=== PATIENT | female | born 1970 | race African-American/Black ===

== ENCOUNTER 2018-06-13 14:08 | Emergency (ER) | payer OTHER ==
[~2018-06-13] VITALS: Ht 165.1 cm; Wt 95.3 kg
--- NOTE | ~2018-06-13 | EKG ---
[place] [address] [employer] [facility] [place] [address] ELECTROCARDIOGRAM REPORT Name: TARIKOLLIE Aby Room #: 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1970 Requested By: Srinivas Najera Order Number: [id number] MD: Deric Ojeda Measurements Intervals [place] Rate: 87 P: -88 [place]: 102 QRS: -28 QRSD: 105 T: 44 QT: 389 QTc: 468 Interpretive Statements Ectopic atrial rhythm Borderline left axis deviation RSR' in V1 or V2, probably normal variant Compared to ECG 02/28/2015 12:09:12 Ectopic atrial rhythm now present Electronically Signed On 06-14-2018 8:49:34 [employer]IST by Deric Ojeda [email or web address] <ELECTRONICALLY SIGNED> By: Deric Ojeda MD, [facility] 06/14/18 0849 1500 1500 Deric Ojeda MD, [facility] /EPI
[~2018-06-13 14:08] MED LIST: APAP500 PO; BACTRIM DS TAB1 EACH PO; COLACE100 MG PO; HYCET 7.5 MG-3473 ML PO; HYDROCODONE-AP1 EAC6 PO; IBUPROFEN 800800 MG PO; LEVAQUIN 500 M500 M2 PO; MIRALAX17 GM PO; MUCINEX TA600 MG/TA2 PO; NORCO 5-325 TA1 EACH PO; NORVASC10 MG PO; SENNA PO; TESSALON PERLE100 MG PO; VENTOLIN HFA 1818 GM INH; ZANTAC 150MG T150 M1 PO; ZANTAC 150MG T150 MG PO; ZOFRAN ODT4 MG PO
[2018-06-13] MEDS ORDERED: RANITIDINE 150150 M1 PO (14:18)
[2018-06-13 15:22] LABS: BASOPHILS 1.4 % (0.0-2.0); EOSINOPHILS 0.5 % (0.0-3.0); HEMATOCRIT 41.5 % (37.0-47.0); HEMOGLOBIN 14.1 gm/dL (12.0-15.0); LYMPHOCYTES 45.1 % (24.0-44.0); MCH 33.1 pg (26.0-34.0); MCV 97.4 fL (80.0-100.0); MONOCYTES 9.7 % (1.0-8.0); PLATELET COUNT 195 thou/uL (150-400); POLYS 43.3 % (36.0-66.0); RBC 4.26 mil/uL (4.20-5.00); RDW 14.2 % (10.5-14.5); WBC 6.9 thou/uL (4.0-11.0)
[2018-06-13 15:27] LABS: ANION GAP 8 mmol/L (7-16); BUN 8 mg/dL (7-18); CALCIUM 9.5 mg/dL (8.5-10.1); CHLORIDE 106 mmol/L (98-107); CO2 29 mmol/L (21-32); CREATININE 0.9 mg/dL (0.6-1.0); GLUCOSE 107 mg/dL (74-106); POTASSIUM 3.9 mmol/L (3.5-5.1); SODIUM 143 mmol/L (136-145)
[2018-06-13 15:37] LABS: TROPONIN-I <0.06 ng/mL (<0.06)
[2018-06-13] MEDS ORDERED: DOXYCYCLINE 10100 MG PO (16:39)
[2018-06-13] MEDS ORDERED: TESSALON PERLE100 MG PO (16:39)
[2018-06-13 17:14] VITALS: BP 155/94
== END 2018-06-13 17:15 | disposition home or self-care (01) ==
LOC: ER 14:08
PROVIDERS: Physician Assistant
DX: J18.9 Pneumonia, unspecified organism (principal); R42 Dizziness and giddiness; G89.29 Other chronic pain; R10.2 Pelvic and perineal pain; K21.9 Gastro-esophageal reflux disease without esophagitis; Z90.49 Acquired absence of other specified parts of digestive tract; Z98.891 History of uterine scar from previous surgery; Z90.710 Acquired absence of both cervix and uterus; Z90.721 Acquired absence of ovaries, unilateral; Z86.718 Personal history of other venous thrombosis and embolism

== ENCOUNTER 2020-01-05 18:43 | Emergency (ER) | payer OTHER ==
[~2020-01-05] VITALS: Ht 165.1 cm; Wt 90.7 kg
[~2020-01-05 18:43] MED LIST changes: +DOXYCYCLINE 10100 MG PO; +RANITIDINE 150150 M1 PO
[2020-01-05 19:50] LABS: URINE BILIRUBIN NEGATIVE (Negative); URINE BLOOD NEGATIVE (Negative); URINE CLARITY CLEAR; URINE COLOR YELLOW; URINE GLUCOSE-RANDOM* NEGATIVE (Negative); URINE KETONES TRACE (Negative); URINE LEUKOCYTES-REFLEX NEGATIVE (Negative); URINE NITRITE-REFLEX NEGATIVE (Negative); URINE PROTEIN (DIPSTICK) TRACE (Negative)
[2020-01-05 20:11] LABS: ABSOLUTE NEUTROPHILS 3.2 thou/uL (1.4-8.2); EOSINOPHILS 3.8 % (0.0-3.0); HEMATOCRIT 34.4 % (37.0-47.0); HEMOGLOBIN 11.8 gm/dL (12.0-15.0); LYMPHOCYTES 45.3 % (24.0-44.0); MCHC 34.2 g/dL (28.0-37.0); MCV 99.4 fL (80.0-100.0); MONOCYTES 7.9 % (1.0-8.0); PLATELET COUNT 212 thou/uL (150-400); RBC 3.46 mil/uL (4.20-5.00); RDW 15.5 % (10.5-14.5); WBC 7.6 thou/uL (4.0-11.0)
[2020-01-05 20:23] LABS: ANION GAP 8 mmol/L (7-16); BUN 11 mg/dL (7-18); CALCIUM 8.4 mg/dL (8.5-10.1); CHLORIDE 106 mmol/L (98-107); CO2 25 mmol/L (21-32); CREATININE 0.8 mg/dL (0.6-1.0); GLUCOSE 97 mg/dL (74-106); POTASSIUM 3.5 mmol/L (3.5-5.1); SODIUM 139 mmol/L (136-145)
[2020-01-05 20:33] LABS: ALBUMIN 3.4 g/dL (3.4-5.0); LIPASE 54 U/L (73-393); SGOT 15 U/L (15-37); SGPT 20 U/L (30-65); TOTAL BILIRUBIN 0.2 mg/dL (0.2-1.0); TOTAL PROTEIN 6.4 g/dL (6.4-8.2); TROPONIN-I <0.06 ng/mL (<0.06)
[2020-01-05] MEDS ORDERED: TRAZODONE HCL50 MG PO (22:27)
[2020-01-05] MEDS ORDERED: NORCO 10-325 T1 EACH PO (22:28)
[2020-01-05 22:38] VITALS: BP 149/88
--- NOTE | 2020-01-06 07:52 | EKG ---
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: [facility] : 1970 Requested By: Barrington Chaves Order Number: [id number] MD: Deric Ojeda Measurements Intervals [place] Rate: 80 P: 57 [place]: 157 QRS: -7 QRSD: 106 T: 48 QT: 392 QTc: 453 Interpretive Statements Sinus rhythm RSR' in V1 or V2, right VCD Compared to ECG 06/13/2018 15:00:04 Ectopic atrial rhythm is no longer present Electronically Signed On 01-06-2020 7:52:01 CDT by Deric Ojeda [email or web address] <ELECTRONICALLY SIGNED> By: Deric Ojeda MD, [facility] 01/06/20 0752 12 12 Deric Ojeda MD, [facility] /EPI
== END 2020-01-05 22:49 | disposition home or self-care (01) ==
LOC: ER 18:43
PROVIDERS: Emergency Medicine
DX: R10.13 Epigastric pain (principal); R51 Headache; H53.149 Visual discomfort, unspecified; K21.9 Gastro-esophageal reflux disease without esophagitis; Z90.49 Acquired absence of other specified parts of digestive tract; Z90.711 Acquired absence of uterus with remaining cervical stump; Z98.51 Tubal ligation status; Z86.718 Personal history of other venous thrombosis and embolism; Z79.899 Other long term (current) drug therapy; Z87.891 Personal history of nicotine dependence

== ENCOUNTER 2021-05-19 11:53 | Emergency (ER) | payer OTHER ==
[~2021-05-19] VITALS: Ht 165.1 cm; Wt 106.6 kg
[~2021-05-19 11:53] MED LIST changes: +NORCO 10-325 T1 EACH PO; +TRAZODONE HCL50 MG PO
[2021-05-19 12:41] LABS: HEMATOCRIT 37.6 % (37.0-47.0); HEMOGLOBIN 12.7 gm/dL (12.0-15.0); MCH 32.7 pg (26.0-34.0); MCHC 33.8 g/dL (28.0-37.0); MCV 96.5 fL (80.0-100.0); RBC 3.9 mil/uL (4.20-5.00); RDW 16.2 % (10.5-14.5); WBC 7.6 thou/uL (4.0-11.0)
[2021-05-19 14:23] LABS: CALCIUM 8.9 mg/dL (8.5-10.1); CREATININE 0.9 mg/dL (0.6-1.0); POTASSIUM 3.5 mmol/L (3.5-5.1)
[2021-05-19 14:29] LABS: ALBUMIN 3.6 g/dL (3.4-5.0); TOTAL BILIRUBIN 0.4 mg/dL (0.2-1.0); TOTAL PROTEIN 7.6 g/dL (6.4-8.2)
[2021-05-19 18:32] VITALS: BP 138/71
== END 2021-05-19 18:45 | disposition home or self-care (01) ==
LOC: ER 11:53
PROVIDERS: Nurse Practitioner Family
DX: K59.00 Constipation, unspecified (principal); K21.9 Gastro-esophageal reflux disease without esophagitis; Z90.49 Acquired absence of other specified parts of digestive tract; Z90.710 Acquired absence of both cervix and uterus; Z98.51 Tubal ligation status; Z79.899 Other long term (current) drug therapy; Z87.891 Personal history of nicotine dependence